=== PATIENT | male | born 1985 | race Caucasian/White ===

== ENCOUNTER 2017-09-17 19:38 | Emergency (ER) | payer OTHER, SELFPAY ==
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
== END 2017-09-17 21:05 ==
LOC: NAV ERS 19:38
DX: F10.129 Alcohol abuse with intoxication, unspecified (principal); G47.30 Sleep apnea, unspecified; F17.200 Nicotine dependence, unspecified, uncomplicated; V43.52XA Car driver injured in collision with other type car in traffic accident, initial encounter
CPT/HCPCS: 36415; 70450; 72125